=== PATIENT | female | born 1950 | race Caucasian/White ===

== ENCOUNTER 2020-04-03 16:23 | Inpatient (IN) ==
[2020-04-04] MEDS ORDERED: Ondansetron 4 MG/2 ML VIAL IVP PRN (07:49)
[2020-04-04] MEDS ORDERED: Naloxone 0.4 MG/ML INJ IVP PRN (07:49)
[2020-04-04] MEDS ORDERED: Acetaminophen 325 MG TABLET PO PRN (07:49)
[2020-04-04] MEDS ORDERED: MOM Conc 10 ML UD.LIQ PO PRN (07:49)
[2020-04-04] MEDS ORDERED: *HR* LORazepam 1 MG TABLET PO PRN (09:28)
[2020-04-04 10:08] LABS: Basophils % 0.3 %; Eosinophils # 0.3 K/mcL (0.0-0.6); Eosinophils % 3.4 %; Hemoglobin 11.2 g/dL (11.5-15.4); Immature Granulocytes % 0.3 % (0-4); Lymphocytes # 1.4 K/mcL (0.6-4.6); Lymphocytes % 17.6 %; Mean Corpuscular HGB Conc 30.3 g/dL (31.6-35.5); Mean Corpuscular Volume 92.5 fL (83.0-100.0); Monocytes # 0.7 K/mcL (0.0-1.3); Monocytes % 8.5 %; Neutrophils # 5.4 K/mcL (1.6-8.9); Platelet Count 293 K/mcL (140-400); Red Cell Distribution Width 17.2 % (11.5-14.5); Segmented Neutrophils % 69.9 %; White Blood Count 7.7 K/mcL (4.3-11.1)
[2020-04-04] MEDS: Pregabalin 50 MG CAPSULE PO SCH ×2 (10:20→21:26)
[2020-04-04] MEDS: Aspirin Enteric Coated 81 MG Tablet PO SCH (10:20)
[2020-04-04] MEDS: Loratadine 10 MG TABLET PO SCH (10:20)
[2020-04-04] MEDS: Artificial Tears SOLN 15 ML BOTTLE LEFT EYE SCH ×2 (10:21→21:27)
[2020-04-04 10:31] LABS: BUN/Creatinine Ratio 67 (6-26); Blood Urea Nitrogen 18 mg/dL (8-23); Calcium 9.1 mg/dL (8.6-10.3); Carbon Dioxide 36 mEq/L (23-29); Chloride 100 mEq/L (98-107); Glucose 69 mg/dL (70-105); Osmolality,Calculated 296 (280-300); Potassium 3.2 mEq/L (3.5-5.1); Sodium 143 mEq/L (136-145); eGFR For African Americans > 60 (> 60); eGFR For Non-African Americans > 60 (> 60)
[2020-04-04] MEDS: Ipratropium 1 PUFF INHALER IH SCH ×4 (11:19→23:43)
[2020-04-04] MEDS: Budesonide/Formoterol 160/4.5 1 PUFF INH IH SCH ×2 (11:19→21:03)
[2020-04-04] MEDS: Insulin LISPRO 300 UNITS/3 ML VIAL SUBQ SCH ×3 (14:16→20:31)
[2020-04-04] MEDS: PrednisoLONE Acetate 1% Opth 5 ML BOTTLE RIGHT EYE SCH (21:27)
[2020-04-04] MEDS: Latanoprost 2.5 ML BOTTLE RIGHT EYE SCH (21:27)
[2020-04-04] MEDS ORDERED: D5% in 0.45% NACL w KCl 20 MEQ/1,000 ML MLS IVC SCH (22:15)
[2020-04-05] MEDS: *HR* Enoxaparin 40 MG/0.4 ML SYRINGE SQ SCH (05:18)
[2020-04-05 07:24] LABS: Basophils % 0.3 %; Eosinophils # 0.3 K/mcL (0.0-0.6); Eosinophils % 5.3 %; Hematocrit 34.3 % (35.3-44.9); Hemoglobin 10.4 g/dL (11.5-15.4); Immature Granulocytes % 0.3 % (0-4); Lymphocytes # 0.9 K/mcL (0.6-4.6); Lymphocytes % 14.7 %; Mean Corpuscular HGB Conc 30.3 g/dL (31.6-35.5); Mean Corpuscular Hemoglobin 28.2 pg (28.0-33.3); Mean Platelet Volume 10.2 fL (9.4-12.4); Monocytes # 0.3 K/mcL (0.0-1.3); Monocytes % 5.5 %; Neutrophils # 4.3 K/mcL (1.6-8.9); Platelet Count 244 K/mcL (140-400); Red Blood Count 3.69 M/mcL (3.82-4.97); Red Cell Distribution Width 17.3 % (11.5-14.5); Segmented Neutrophils % 73.9 %; White Blood Count 5.9 K/mcL (4.3-11.1)
[2020-04-05] MEDS ORDERED: Ipratropium 1 PUFF INHALER IH SCH (07:30)
[2020-04-05 07:48] LABS: Alanine Aminotransferase 32 Units/L (7-52); Albumin 2.9 g/dL (3.5-5.7); Albumin/Globulin Ratio 1.3 (1.1-2.2); Alkaline Phosphatase 57 Units/L (34-104); Aspartate Amino Transferase 19 Units/L (13-39); BUN/Creatinine Ratio 55 (6-26); Bilirubin,Total 0.8 mg/dL (0.3-1.0); Blood Urea Nitrogen 18 mg/dL (8-23); Calcium 8.6 mg/dL (8.6-10.3); Carbon Dioxide 37 mEq/L (23-29); Chloride 100 mEq/L (98-107); Globulin 2.3 g/dL (2.4-3.5); Glucose 124 mg/dL (70-105); Magnesium 1.8 mg/dL (1.6-2.6); Osmolality,Calculated 293 (280-300); Potassium 3.6 mEq/L (3.5-5.1); Sodium 140 mEq/L (136-145); Total Protein 5.2 g/dL (6.4-8.9); eGFR For African Americans > 60 (> 60); eGFR For Non-African Americans > 60 (> 60)
[2020-04-05] MEDS: Ipratropium 1 PUFF INHALER IH SCH ×3 (08:11→22:35)
[2020-04-05] MEDS: Budesonide/Formoterol 160/4.5 1 PUFF INH IH SCH ×2 (09:58→22:36)
[2020-04-05] MEDS: Insulin LISPRO 300 UNITS/3 ML VIAL SUBQ SCH ×4 (11:02→20:32)
[2020-04-05] MEDS: Aspirin Enteric Coated 81 MG Tablet PO SCH (11:34)
[2020-04-05] MEDS: Loratadine 10 MG TABLET PO SCH (11:34)
[2020-04-05] MEDS: Pregabalin 50 MG CAPSULE PO SCH ×2 (11:34→20:25)
[2020-04-05] MEDS: Artificial Tears SOLN 15 ML BOTTLE LEFT EYE SCH ×2 (11:37→20:26)
[2020-04-05] MEDS: PrednisoLONE Acetate 1% Opth 5 ML BOTTLE RIGHT EYE SCH ×2 (11:39→20:28)
[2020-04-05] MEDS: acetaZOLAMIDE 250 MG TABLET PO SCH ×2 (15:03→20:25)
[2020-04-05] MEDS: Latanoprost 2.5 ML BOTTLE RIGHT EYE SCH (20:28)
[2020-04-06] MEDS: Ipratropium 1 PUFF INHALER IH SCH ×4 (04:19→23:03)
[2020-04-06 05:21] LABS: Basophils % 0.4 %; Eosinophils # 0.3 K/mcL (0.0-0.6); Eosinophils % 5.5 %; Hematocrit 34.3 % (35.3-44.9); Hemoglobin 10.4 g/dL (11.5-15.4); Immature Granulocytes % 0.4 % (0-4); Lymphocytes # 0.9 K/mcL (0.6-4.6); Lymphocytes % 16.9 %; Mean Corpuscular HGB Conc 30.3 g/dL (31.6-35.5); Mean Corpuscular Hemoglobin 28.4 pg (28.0-33.3); Mean Corpuscular Volume 93.7 fL (83.0-100.0); Mean Platelet Volume 10.6 fL (9.4-12.4); Monocytes # 0.4 K/mcL (0.0-1.3); Neutrophils # 3.7 K/mcL (1.6-8.9); Platelet Count 261 K/mcL (140-400); Red Blood Count 3.66 M/mcL (3.82-4.97); Red Cell Distribution Width 17.3 % (11.5-14.5); Segmented Neutrophils % 69.8 %; White Blood Count 5.3 K/mcL (4.3-11.1)
[2020-04-06] MEDS: *HR* Enoxaparin 40 MG/0.4 ML SYRINGE SQ SCH (05:51)
[2020-04-06 06:53] LABS: BUN/Creatinine Ratio 26 (6-26); Blood Urea Nitrogen 10 mg/dL (8-23); Calcium 8.7 mg/dL (8.6-10.3); Carbon Dioxide 31 mEq/L (23-29); Chloride 104 mEq/L (98-107); Glucose 96 mg/dL (70-105); Osmolality,Calculated 291 (280-300); Potassium 3.4 mEq/L (3.5-5.1); Sodium 141 mEq/L (136-145); eGFR For African Americans > 60 (> 60); eGFR For Non-African Americans > 60 (> 60)
[2020-04-06] MEDS: Budesonide/Formoterol 160/4.5 1 PUFF INH IH SCH ×2 (09:30→23:01)
[2020-04-06] MEDS: acetaZOLAMIDE 250 MG TABLET PO SCH ×2 (09:34→20:50)
[2020-04-06] MEDS: Aspirin Enteric Coated 81 MG Tablet PO SCH (09:34)
[2020-04-06] MEDS: Pregabalin 50 MG CAPSULE PO SCH ×2 (09:34→20:50)
[2020-04-06] MEDS: Loratadine 10 MG TABLET PO SCH (09:34)
[2020-04-06] MEDS: Artificial Tears SOLN 15 ML BOTTLE LEFT EYE SCH ×2 (09:36→20:50)
[2020-04-06] MEDS: PrednisoLONE Acetate 1% Opth 5 ML BOTTLE RIGHT EYE SCH ×2 (09:37→20:49)
[2020-04-06] MEDS: Insulin LISPRO 300 UNITS/3 ML VIAL SUBQ SCH ×4 (09:42→20:45)
[2020-04-06] MEDS: Metoprolol XL (24 HR) Succ 25 MG TAB.ER.24H PO SCH (12:22)
[2020-04-06] MEDS: Latanoprost 2.5 ML BOTTLE RIGHT EYE SCH (20:50)
[2020-04-07] MEDS: Ipratropium 1 PUFF INHALER IH SCH ×2 (04:47→11:10)
[2020-04-07] MEDS: *HR* Enoxaparin 40 MG/0.4 ML SYRINGE SQ SCH (05:16)
[2020-04-07 07:29] LABS: Basophils % 0.4 %; Eosinophils # 0.4 K/mcL (0.0-0.6); Eosinophils % 6.5 %; Hematocrit 34.3 % (35.3-44.9); Hemoglobin 10.3 g/dL (11.5-15.4); Immature Granulocytes % 0.4 % (0-4); Lymphocytes # 0.9 K/mcL (0.6-4.6); Lymphocytes % 15.8 %; Mean Corpuscular Hemoglobin 27.9 pg (28.0-33.3); Mean Platelet Volume 10.4 fL (9.4-12.4); Monocytes # 0.4 K/mcL (0.0-1.3); Monocytes % 7.8 %; Neutrophils # 3.7 K/mcL (1.6-8.9); Platelet Count 246 K/mcL (140-400); Red Blood Count 3.69 M/mcL (3.82-4.97); Red Cell Distribution Width 17.3 % (11.5-14.5); Segmented Neutrophils % 69.1 %; White Blood Count 5.4 K/mcL (4.3-11.1)
[2020-04-07] MEDS: Insulin LISPRO 300 UNITS/3 ML VIAL SUBQ SCH ×2 (07:36→11:48)
[2020-04-07 07:51] LABS: BUN/Creatinine Ratio 23 (6-26); Blood Urea Nitrogen 8 mg/dL (8-23); Calcium 8.9 mg/dL (8.6-10.3); Carbon Dioxide 28 mEq/L (23-29); Chloride 104 mEq/L (98-107); Glucose 123 mg/dL (70-105); Osmolality,Calculated 286 (280-300); Potassium 3.6 mEq/L (3.5-5.1); Sodium 138 mEq/L (136-145); eGFR For African Americans > 60 (> 60); eGFR For Non-African Americans > 60 (> 60)
[2020-04-07] MEDS ORDERED: *HR* GlipiZIDE XL (24 HR) 2.5 MG TABLET PO SCH (08:00)
[2020-04-07] MEDS: Aspirin Enteric Coated 81 MG Tablet PO SCH (08:03)
[2020-04-07] MEDS: Loratadine 10 MG TABLET PO SCH (08:03)
[2020-04-07] MEDS: Metoprolol XL (24 HR) Succ 25 MG TAB.ER.24H PO SCH (08:03)
[2020-04-07] MEDS: Pregabalin 50 MG CAPSULE PO SCH (08:04)
[2020-04-07] MEDS: PrednisoLONE Acetate 1% Opth 5 ML BOTTLE RIGHT EYE SCH (08:08)
[2020-04-07] MEDS: Artificial Tears SOLN 15 ML BOTTLE LEFT EYE SCH (08:09)
[2020-04-07] MEDS ORDERED: Furosemide 40 MG TABLET PO SCH (09:00)
[2020-04-07] MEDS: Budesonide/Formoterol 160/4.5 1 PUFF INH IH SCH (11:11)
[2020-04-07 11:33] VITALS: BP 113/58
== END 2020-04-07 12:15 | disposition other institution (70) | DRG 177 ==
LOC: INPPIK 04-04 06:37
PROVIDERS: ADMIT Family Medicine; ATTEND Family Medicine

== ENCOUNTER 2020-04-07 11:47 | Inpatient (IN) ==
[2020-04-07] MEDS ORDERED: Nitroglycerin 0.4 MG TAB.SUBL SL PRN (15:12)
[2020-04-07] MEDS ORDERED: *HR* LORazepam 1 MG TABLET PO PRN (15:12)
[2020-04-07] MEDS ORDERED: Ondansetron 4 MG/2 ML VIAL IVP PRN (15:12)
[2020-04-07] MEDS ORDERED: D5% in Water 1,000 ML IVC PRN (15:18)
[2020-04-07] MEDS ORDERED: Dextrose Gel 15 GM/37.5 ML TUBE PO PRN ×2 (15:18)
[2020-04-07] MEDS ORDERED: *HR* Dextrose 50 % in Water (Vial) 50 ML VIAL IVP PRN (15:18)
[2020-04-07] MEDS: Insulin LISPRO 300 UNITS/3 ML VIAL SUBQ SCH ×2 (16:36→21:40)
[2020-04-07] MEDS: Ipratropium 1 PUFF INHALER IH SCH ×2 (17:03→22:15)
[2020-04-07] MEDS: PrednisoLONE Acetate 1% Opth 5 ML BOTTLE RIGHT EYE SCH (21:46)
[2020-04-07] MEDS: Latanoprost 2.5 ML BOTTLE RIGHT EYE SCH (21:46)
[2020-04-07] MEDS: Pregabalin 50 MG CAPSULE PO SCH (21:46)
[2020-04-07] MEDS: Artificial Tears SOLN 15 ML BOTTLE LEFT EYE SCH (21:47)
[2020-04-07] MEDS: Budesonide/Formoterol 160/4.5 1 PUFF INH IH SCH (22:17)
[2020-04-08] MEDS: Ipratropium 1 PUFF INHALER IH SCH ×4 (03:53→22:21)
[2020-04-08] MEDS: *HR* Enoxaparin 40 MG/0.4 ML SYRINGE SQ SCH (05:36)
[2020-04-08 07:16] LABS: Basophils % 0.4 %; Eosinophils # 0.4 K/mcL (0.0-0.6); Eosinophils % 6.8 %; Hematocrit 36.7 % (35.3-44.9); Hemoglobin 11.1 g/dL (11.5-15.4); Immature Granulocytes % 0.4 % (0-4); Lymphocytes # 0.9 K/mcL (0.6-4.6); Lymphocytes % 16.5 %; Mean Corpuscular HGB Conc 30.2 g/dL (31.6-35.5); Mean Corpuscular Volume 92.7 fL (83.0-100.0); Mean Platelet Volume 10.4 fL (9.4-12.4); Monocytes # 0.5 K/mcL (0.0-1.3); Monocytes % 8.6 %; Neutrophils # 3.7 K/mcL (1.6-8.9); Platelet Count 302 K/mcL (140-400); Red Blood Count 3.96 M/mcL (3.82-4.97); Red Cell Distribution Width 17.2 % (11.5-14.5); Segmented Neutrophils % 67.3 %; White Blood Count 5.6 K/mcL (4.3-11.1)
[2020-04-08 07:20] LABS: BUN/Creatinine Ratio 22 (6-26); Blood Urea Nitrogen 8 mg/dL (8-23); Carbon Dioxide 31 mEq/L (23-29); Chloride 102 mEq/L (98-107); Glucose 104 mg/dL (70-105); Osmolality,Calculated 289 (280-300); Potassium 3.6 mEq/L (3.5-5.1); Sodium 140 mEq/L (136-145); eGFR For African Americans > 60 (> 60); eGFR For Non-African Americans > 60 (> 60)
[2020-04-08 07:22] LABS: Activated Partial Thrombo Time 33.6 Seconds (26.0-36.0); INR 1.1
[2020-04-08] MEDS: Insulin LISPRO 300 UNITS/3 ML VIAL SUBQ SCH ×4 (08:53→20:48)
[2020-04-08] MEDS: Pregabalin 50 MG CAPSULE PO SCH ×2 (08:54→20:47)
[2020-04-08] MEDS: *HR* GlipiZIDE XL (24 HR) 10 MG TABLET PO SCH (08:54)
[2020-04-08] MEDS: Furosemide 40 MG TABLET PO SCH (08:54)
[2020-04-08] MEDS: Metoprolol XL (24 HR) Succ 25 MG TAB.ER.24H PO SCH (08:54)
[2020-04-08] MEDS: Aspirin Enteric Coated 81 MG Tablet PO SCH (08:54)
[2020-04-08] MEDS: Losartan/HCTZ 50-12.5 TABLET PO SCH (08:54)
[2020-04-08] MEDS: PrednisoLONE Acetate 1% Opth 5 ML BOTTLE RIGHT EYE SCH ×2 (08:55→20:48)
[2020-04-08] MEDS: Loratadine 10 MG TABLET PO SCH (08:55)
[2020-04-08] MEDS: Artificial Tears SOLN 15 ML BOTTLE LEFT EYE SCH ×2 (09:01→20:45)
[2020-04-08] MEDS: Budesonide/Formoterol 160/4.5 1 PUFF INH IH SCH ×2 (09:38→22:25)
[2020-04-08] MEDS: Latanoprost 2.5 ML BOTTLE RIGHT EYE SCH (20:50)
[2020-04-09] MEDS: Ipratropium 1 PUFF INHALER IH SCH ×4 (03:42→22:24)
[2020-04-09] MEDS: *HR* Enoxaparin 40 MG/0.4 ML SYRINGE SQ SCH (05:20)
[2020-04-09] MEDS: PrednisoLONE Acetate 1% Opth 5 ML BOTTLE RIGHT EYE SCH ×2 (08:33→19:58)
[2020-04-09] MEDS: Insulin LISPRO 300 UNITS/3 ML VIAL SUBQ SCH ×4 (08:33→20:04)
[2020-04-09] MEDS: Aspirin Enteric Coated 81 MG Tablet PO SCH (08:34)
[2020-04-09] MEDS: Pregabalin 50 MG CAPSULE PO SCH ×2 (08:34→19:58)
[2020-04-09] MEDS: Metoprolol XL (24 HR) Succ 25 MG TAB.ER.24H PO SCH (08:34)
[2020-04-09] MEDS: Loratadine 10 MG TABLET PO SCH (08:34)
[2020-04-09] MEDS: Losartan/HCTZ 50-12.5 TABLET PO SCH (08:34)
[2020-04-09] MEDS: *HR* GlipiZIDE XL (24 HR) 10 MG TABLET PO SCH (08:35)
[2020-04-09] MEDS: Furosemide 40 MG TABLET PO SCH (08:35)
[2020-04-09] MEDS: Artificial Tears SOLN 15 ML BOTTLE LEFT EYE SCH ×2 (08:36→19:56)
[2020-04-09] MEDS: Budesonide/Formoterol 160/4.5 1 PUFF INH IH SCH ×2 (10:06→22:24)
[2020-04-09] MEDS: Latanoprost 2.5 ML BOTTLE RIGHT EYE SCH (19:58)
[2020-04-10] MEDS: Ipratropium 1 PUFF INHALER IH SCH ×4 (04:28→22:58)
[2020-04-10] MEDS: *HR* Enoxaparin 40 MG/0.4 ML SYRINGE SQ SCH (05:13)
[2020-04-10] MEDS: Insulin LISPRO 300 UNITS/3 ML VIAL SUBQ SCH ×4 (07:32→19:55)
[2020-04-10] MEDS: Artificial Tears SOLN 15 ML BOTTLE LEFT EYE SCH ×2 (08:29→20:05)
[2020-04-10] MEDS: PrednisoLONE Acetate 1% Opth 5 ML BOTTLE RIGHT EYE SCH ×2 (08:30→20:04)
[2020-04-10] MEDS: *HR* GlipiZIDE XL (24 HR) 10 MG TABLET PO SCH (08:31)
[2020-04-10] MEDS: Metoprolol XL (24 HR) Succ 25 MG TAB.ER.24H PO SCH (08:31)
[2020-04-10] MEDS: Losartan/HCTZ 50-12.5 TABLET PO SCH (08:32)
[2020-04-10] MEDS: Furosemide 40 MG TABLET PO SCH (08:32)
[2020-04-10] MEDS: Aspirin Enteric Coated 81 MG Tablet PO SCH (08:32)
[2020-04-10] MEDS: Loratadine 10 MG TABLET PO SCH (08:32)
[2020-04-10] MEDS: Pregabalin 50 MG CAPSULE PO SCH ×2 (08:32→20:05)
[2020-04-10] MEDS: Budesonide/Formoterol 160/4.5 1 PUFF INH IH SCH ×2 (09:13→22:58)
[2020-04-10] MEDS: Latanoprost 2.5 ML BOTTLE RIGHT EYE SCH (20:05)
[2020-04-11] MEDS: Ipratropium 1 PUFF INHALER IH SCH ×4 (04:37→21:27)
[2020-04-11] MEDS: *HR* Enoxaparin 40 MG/0.4 ML SYRINGE SQ SCH (05:16)
[2020-04-11] MEDS: Insulin LISPRO 300 UNITS/3 ML VIAL SUBQ SCH ×4 (08:44→21:11)
[2020-04-11] MEDS: Losartan/HCTZ 50-12.5 TABLET PO SCH (08:45)
[2020-04-11] MEDS: Loratadine 10 MG TABLET PO SCH (08:45)
[2020-04-11] MEDS: Furosemide 40 MG TABLET PO SCH (08:45)
[2020-04-11] MEDS: Aspirin Enteric Coated 81 MG Tablet PO SCH (08:45)
[2020-04-11] MEDS: *HR* GlipiZIDE XL (24 HR) 10 MG TABLET PO SCH (08:45)
[2020-04-11] MEDS: Pregabalin 50 MG CAPSULE PO SCH ×2 (08:45→21:09)
[2020-04-11] MEDS: PrednisoLONE Acetate 1% Opth 5 ML BOTTLE RIGHT EYE SCH ×2 (08:58→21:16)
[2020-04-11] MEDS: Metoprolol XL (24 HR) Succ 25 MG TAB.ER.24H PO SCH (08:59)
[2020-04-11] MEDS: Artificial Tears SOLN 15 ML BOTTLE LEFT EYE SCH ×2 (08:59→21:16)
[2020-04-11] MEDS: Budesonide/Formoterol 160/4.5 1 PUFF INH IH SCH ×2 (09:20→21:27)
[2020-04-11] MEDS: Latanoprost 2.5 ML BOTTLE RIGHT EYE SCH (21:06)
[2020-04-12] MEDS: Ipratropium 1 PUFF INHALER IH SCH ×4 (04:27→20:53)
[2020-04-12] MEDS: *HR* Enoxaparin 40 MG/0.4 ML SYRINGE SQ SCH (04:57)
[2020-04-12] MEDS: Insulin LISPRO 300 UNITS/3 ML VIAL SUBQ SCH ×4 (07:42→21:18)
[2020-04-12] MEDS: Artificial Tears SOLN 15 ML BOTTLE LEFT EYE SCH ×2 (07:47→21:18)
[2020-04-12] MEDS: Pregabalin 50 MG CAPSULE PO SCH ×2 (07:49→21:20)
[2020-04-12] MEDS: Aspirin Enteric Coated 81 MG Tablet PO SCH (07:52)
[2020-04-12] MEDS: *HR* GlipiZIDE XL (24 HR) 10 MG TABLET PO SCH (07:52)
[2020-04-12] MEDS: Furosemide 40 MG TABLET PO SCH (07:52)
[2020-04-12] MEDS: Loratadine 10 MG TABLET PO SCH (07:52)
[2020-04-12] MEDS: PrednisoLONE Acetate 1% Opth 5 ML BOTTLE RIGHT EYE SCH ×2 (07:53→21:21)
[2020-04-12] MEDS ORDERED: Metoprolol XL (24 HR) Succ 25 MG TAB.ER.24H PO SCH (09:00)
[2020-04-12] MEDS: Budesonide/Formoterol 160/4.5 1 PUFF INH IH SCH ×2 (09:50→20:52)
[2020-04-12] MEDS: Latanoprost 2.5 ML BOTTLE RIGHT EYE SCH (21:21)
[2020-04-13] MEDS: Ipratropium 1 PUFF INHALER IH SCH ×4 (03:48→22:45)
[2020-04-13] MEDS: Insulin LISPRO 300 UNITS/3 ML VIAL SUBQ SCH ×4 (08:12→21:17)
[2020-04-13] MEDS: Artificial Tears SOLN 15 ML BOTTLE LEFT EYE SCH ×2 (08:13→21:16)
[2020-04-13] MEDS: Pregabalin 50 MG CAPSULE PO SCH ×2 (08:15→21:18)
[2020-04-13] MEDS: Loratadine 10 MG TABLET PO SCH (08:15)
[2020-04-13] MEDS: *HR* GlipiZIDE XL (24 HR) 10 MG TABLET PO SCH (08:16)
[2020-04-13] MEDS: Aspirin Enteric Coated 81 MG Tablet PO SCH (08:16)
[2020-04-13] MEDS: Furosemide 40 MG TABLET PO SCH (08:16)
[2020-04-13] MEDS: PrednisoLONE Acetate 1% Opth 5 ML BOTTLE RIGHT EYE SCH ×2 (08:18→21:16)
[2020-04-13] MEDS: Budesonide/Formoterol 160/4.5 1 PUFF INH IH SCH ×2 (10:23→22:46)
[2020-04-13] MEDS: Preparation H Ointment 57 GM TUBE RC SCH ×2 (12:41→21:19)
[2020-04-13] MEDS: Latanoprost 2.5 ML BOTTLE RIGHT EYE SCH (21:16)
[2020-04-14] MEDS: Ipratropium 1 PUFF INHALER IH SCH ×2 (03:35→09:44)
[2020-04-14] MEDS: Pregabalin 50 MG CAPSULE PO SCH ×2 (08:24→21:13)
[2020-04-14] MEDS: *HR* GlipiZIDE XL (24 HR) 10 MG TABLET PO SCH (08:24)
[2020-04-14] MEDS: Furosemide 40 MG TABLET PO SCH (08:24)
[2020-04-14] MEDS: Loratadine 10 MG TABLET PO SCH (08:24)
[2020-04-14] MEDS: Insulin LISPRO 300 UNITS/3 ML VIAL SUBQ SCH ×4 (08:24→21:14)
[2020-04-14] MEDS: Aspirin Enteric Coated 81 MG Tablet PO SCH (08:25)
[2020-04-14] MEDS: Artificial Tears SOLN 15 ML BOTTLE LEFT EYE SCH ×2 (08:30→21:15)
[2020-04-14] MEDS: PrednisoLONE Acetate 1% Opth 5 ML BOTTLE RIGHT EYE SCH ×2 (08:34→21:16)
[2020-04-14] MEDS: Preparation H Ointment 57 GM TUBE RC SCH ×2 (08:39→21:17)
[2020-04-14] MEDS: Budesonide/Formoterol 160/4.5 1 PUFF INH IH SCH ×2 (09:44→22:14)
[2020-04-14] MEDS: Latanoprost 2.5 ML BOTTLE RIGHT EYE SCH (21:16)
[2020-04-14] MEDS: Ipratropium 1 PUFF INHALER IH PRN (22:16)
[2020-04-15] MEDS: Ipratropium 1 PUFF INHALER IH PRN ×3 (08:35→21:08)
[2020-04-15] MEDS: Budesonide/Formoterol 160/4.5 1 PUFF INH IH SCH ×2 (08:35→21:08)
[2020-04-15] MEDS: Artificial Tears SOLN 15 ML BOTTLE LEFT EYE SCH ×2 (08:48→19:58)
[2020-04-15] MEDS: Aspirin Enteric Coated 81 MG Tablet PO SCH (08:49)
[2020-04-15] MEDS: Pregabalin 50 MG CAPSULE PO SCH ×2 (08:49→19:58)
[2020-04-15] MEDS: *HR* GlipiZIDE XL (24 HR) 10 MG TABLET PO SCH (08:49)
[2020-04-15] MEDS: Loratadine 10 MG TABLET PO SCH (08:49)
[2020-04-15] MEDS: Furosemide 40 MG TABLET PO SCH (08:49)
[2020-04-15] MEDS: Preparation H Ointment 57 GM TUBE RC SCH ×2 (08:50→20:00)
[2020-04-15] MEDS: PrednisoLONE Acetate 1% Opth 5 ML BOTTLE RIGHT EYE SCH ×2 (08:53→20:00)
[2020-04-15] MEDS: Insulin LISPRO 300 UNITS/3 ML VIAL SUBQ SCH ×4 (08:54→20:09)
[2020-04-15] MEDS: Diphenoxylate/Atropine 1 TAB TABLET PO PRN ×2 (16:48→19:58)
[2020-04-15] MEDS: Potassium Chloride Elixir 20 MEQ/15 ML UDC PO SCH ×2 (19:58→20:06)
[2020-04-15] MEDS: Latanoprost 2.5 ML BOTTLE RIGHT EYE SCH (19:59)
[2020-04-16 07:13] LABS: Basophils % 0.5 %; Eosinophils # 0.2 K/mcL (0.0-0.6); Eosinophils % 2.3 %; Hematocrit 33.4 % (35.3-44.9); Hemoglobin 10.2 g/dL (11.5-15.4); Immature Granulocytes % 0.4 % (0-4); Lymphocytes # 1.5 K/mcL (0.6-4.6); Lymphocytes % 20.3 %; Mean Corpuscular HGB Conc 30.5 g/dL (31.6-35.5); Mean Corpuscular Hemoglobin 27.6 pg (28.0-33.3); Mean Corpuscular Volume 90.3 fL (83.0-100.0); Monocytes # 0.6 K/mcL (0.0-1.3); Monocytes % 8.1 %; Platelet Count 247 K/mcL (140-400); Red Cell Distribution Width 16.5 % (11.5-14.5); Segmented Neutrophils % 68.4 %; White Blood Count 7.3 K/mcL (4.3-11.1)
[2020-04-16 07:23] LABS: BUN/Creatinine Ratio 34 (6-26); Blood Urea Nitrogen 12 mg/dL (8-23); Calcium 8.9 mg/dL (8.6-10.3); Carbon Dioxide 38 mEq/L (23-29); Chloride 96 mEq/L (98-107); Glucose 117 mg/dL (70-105); Osmolality,Calculated 291 (280-300); Potassium 3.6 mEq/L (3.5-5.1); Sodium 140 mEq/L (136-145); eGFR For African Americans > 60 (> 60); eGFR For Non-African Americans > 60 (> 60)
[2020-04-16] MEDS: Budesonide/Formoterol 160/4.5 1 PUFF INH IH SCH ×2 (08:53→21:24)
[2020-04-16] MEDS: Ipratropium 1 PUFF INHALER IH PRN ×3 (08:54→21:24)
[2020-04-16] MEDS: Insulin LISPRO 300 UNITS/3 ML VIAL SUBQ SCH ×4 (08:57→20:25)
[2020-04-16] MEDS: Loratadine 10 MG TABLET PO SCH (08:57)
[2020-04-16] MEDS: Furosemide 40 MG TABLET PO SCH (08:57)
[2020-04-16] MEDS: Aspirin Enteric Coated 81 MG Tablet PO SCH (08:57)
[2020-04-16] MEDS: Pregabalin 50 MG CAPSULE PO SCH ×2 (08:58→20:24)
[2020-04-16] MEDS: *HR* GlipiZIDE XL (24 HR) 10 MG TABLET PO SCH (08:58)
[2020-04-16] MEDS: PrednisoLONE Acetate 1% Opth 5 ML BOTTLE RIGHT EYE SCH ×2 (09:02→20:25)
[2020-04-16] MEDS: Artificial Tears SOLN 15 ML BOTTLE LEFT EYE SCH ×2 (09:02→20:24)
[2020-04-16] MEDS: Preparation H Ointment 57 GM TUBE RC SCH ×2 (12:11→20:25)
[2020-04-16] MEDS: Latanoprost 2.5 ML BOTTLE RIGHT EYE SCH (20:25)
[2020-04-17] MEDS: Insulin LISPRO 300 UNITS/3 ML VIAL SUBQ SCH ×4 (07:48→20:01)
[2020-04-17] MEDS: *HR* GlipiZIDE XL (24 HR) 10 MG TABLET PO SCH (08:16)
[2020-04-17] MEDS: Loratadine 10 MG TABLET PO SCH (08:16)
[2020-04-17] MEDS: Pregabalin 50 MG CAPSULE PO SCH ×2 (08:16→20:00)
[2020-04-17] MEDS: Aspirin Enteric Coated 81 MG Tablet PO SCH (08:16)
[2020-04-17] MEDS: Furosemide 40 MG TABLET PO SCH (08:16)
[2020-04-17] MEDS: Preparation H Ointment 57 GM TUBE RC SCH ×2 (08:17→21:06)
[2020-04-17] MEDS: Artificial Tears SOLN 15 ML BOTTLE LEFT EYE SCH ×2 (08:17→20:01)
[2020-04-17] MEDS: PrednisoLONE Acetate 1% Opth 5 ML BOTTLE RIGHT EYE SCH ×2 (08:21→20:01)
[2020-04-17] MEDS: Ipratropium 1 PUFF INHALER IH PRN ×2 (10:39→21:06)
[2020-04-17] MEDS: Budesonide/Formoterol 160/4.5 1 PUFF INH IH SCH ×2 (10:40→21:06)
[2020-04-17] MEDS: Latanoprost 2.5 ML BOTTLE RIGHT EYE SCH (20:00)
[2020-04-18] MEDS: Preparation H Ointment 57 GM TUBE RC SCH ×2 (06:03→20:29)
[2020-04-18] MEDS: Artificial Tears SOLN 15 ML BOTTLE LEFT EYE SCH ×2 (08:29→20:20)
[2020-04-18] MEDS: Aspirin Enteric Coated 81 MG Tablet PO SCH (08:30)
[2020-04-18] MEDS: *HR* GlipiZIDE XL (24 HR) 10 MG TABLET PO SCH (08:30)
[2020-04-18] MEDS: Furosemide 40 MG TABLET PO SCH (08:30)
[2020-04-18] MEDS: Loratadine 10 MG TABLET PO SCH (08:30)
[2020-04-18] MEDS: Pregabalin 50 MG CAPSULE PO SCH ×2 (08:31→20:19)
[2020-04-18] MEDS: Insulin LISPRO 300 UNITS/3 ML VIAL SUBQ SCH ×4 (08:31→20:20)
[2020-04-18] MEDS: PrednisoLONE Acetate 1% Opth 5 ML BOTTLE RIGHT EYE SCH ×2 (08:33→20:19)
[2020-04-18] MEDS: Budesonide/Formoterol 160/4.5 1 PUFF INH IH SCH ×2 (10:18→20:52)
[2020-04-18] MEDS: Ipratropium 1 PUFF INHALER IH PRN ×2 (10:20→20:53)
[2020-04-18] MEDS: Acetaminophen 325 MG TABLET PO PRN (20:19)
[2020-04-18] MEDS: Latanoprost 2.5 ML BOTTLE RIGHT EYE SCH (20:20)
[2020-04-19] MEDS: Insulin LISPRO 300 UNITS/3 ML VIAL SUBQ SCH ×4 (08:06→21:12)
[2020-04-19] MEDS: Loratadine 10 MG TABLET PO SCH (08:30)
[2020-04-19] MEDS: Furosemide 40 MG TABLET PO SCH (08:30)
[2020-04-19] MEDS: *HR* GlipiZIDE XL (24 HR) 10 MG TABLET PO SCH (08:30)
[2020-04-19] MEDS: Aspirin Enteric Coated 81 MG Tablet PO SCH (08:30)
[2020-04-19] MEDS: Pregabalin 50 MG CAPSULE PO SCH ×2 (08:30→21:16)
[2020-04-19] MEDS: Artificial Tears SOLN 15 ML BOTTLE LEFT EYE SCH ×2 (08:31→21:21)
[2020-04-19] MEDS: PrednisoLONE Acetate 1% Opth 5 ML BOTTLE RIGHT EYE SCH ×2 (08:32→21:21)
[2020-04-19] MEDS: Budesonide/Formoterol 160/4.5 1 PUFF INH IH SCH ×2 (08:55→21:29)
[2020-04-19] MEDS: Ipratropium 1 PUFF INHALER IH PRN ×2 (08:56→21:29)
[2020-04-19] MEDS: Preparation H Ointment 57 GM TUBE RC SCH ×2 (13:51→21:17)
[2020-04-19] MEDS: Acetaminophen 325 MG TABLET PO PRN (21:15)
[2020-04-19] MEDS: Latanoprost 2.5 ML BOTTLE RIGHT EYE SCH (21:20)
[2020-04-20] MEDS: PrednisoLONE Acetate 1% Opth 5 ML BOTTLE RIGHT EYE SCH ×2 (08:06→21:47)
[2020-04-20] MEDS: Artificial Tears SOLN 15 ML BOTTLE LEFT EYE SCH ×2 (08:06→21:48)
[2020-04-20] MEDS: Acetaminophen 325 MG TABLET PO PRN ×2 (08:11→21:49)
[2020-04-20] MEDS: Pregabalin 50 MG CAPSULE PO SCH ×2 (08:12→21:50)
[2020-04-20] MEDS: *HR* GlipiZIDE XL (24 HR) 10 MG TABLET PO SCH (08:12)
[2020-04-20] MEDS: Aspirin Enteric Coated 81 MG Tablet PO SCH (08:12)
[2020-04-20] MEDS: Loratadine 10 MG TABLET PO SCH (08:12)
[2020-04-20] MEDS: Insulin LISPRO 300 UNITS/3 ML VIAL SUBQ SCH ×4 (08:13→21:39)
[2020-04-20] MEDS: Furosemide 40 MG TABLET PO SCH (08:16)
[2020-04-20] MEDS: Ipratropium 1 PUFF INHALER IH PRN ×2 (08:25→21:23)
[2020-04-20] MEDS: Budesonide/Formoterol 160/4.5 1 PUFF INH IH SCH ×2 (08:25→21:23)
[2020-04-20] MEDS: Preparation H Ointment 57 GM TUBE RC SCH ×2 (09:46→21:46)
[2020-04-20] MEDS: Latanoprost 2.5 ML BOTTLE RIGHT EYE SCH (21:51)
[2020-04-21] MEDS: Insulin LISPRO 300 UNITS/3 ML VIAL SUBQ SCH ×4 (07:40→21:49)
[2020-04-21] MEDS: Ipratropium 1 PUFF INHALER IH PRN ×2 (07:59→21:22)
[2020-04-21] MEDS: Budesonide/Formoterol 160/4.5 1 PUFF INH IH SCH ×2 (07:59→21:22)
[2020-04-21] MEDS: *HR* GlipiZIDE XL (24 HR) 10 MG TABLET PO SCH (10:04)
[2020-04-21] MEDS: Furosemide 40 MG TABLET PO SCH (10:04)
[2020-04-21] MEDS: Aspirin Enteric Coated 81 MG Tablet PO SCH (10:04)
[2020-04-21] MEDS: Loratadine 10 MG TABLET PO SCH (10:04)
[2020-04-21] MEDS: Pregabalin 50 MG CAPSULE PO SCH ×2 (10:05→22:57)
[2020-04-21] MEDS: Artificial Tears SOLN 15 ML BOTTLE LEFT EYE SCH ×2 (10:12→21:48)
[2020-04-21] MEDS: PrednisoLONE Acetate 1% Opth 5 ML BOTTLE RIGHT EYE SCH ×2 (10:13→21:48)
[2020-04-21] MEDS: Preparation H Ointment 57 GM TUBE RC SCH ×2 (10:15→21:50)
[2020-04-21] MEDS ORDERED: *HR* LORazepam 1 MG TABLET PO PRN (15:19)
[2020-04-21] MEDS: Acetaminophen 325 MG TABLET PO PRN (21:46)
[2020-04-21] MEDS: Latanoprost 2.5 ML BOTTLE RIGHT EYE SCH (21:50)
[2020-04-22] MEDS: Insulin LISPRO 300 UNITS/3 ML VIAL SUBQ SCH ×4 (07:46→20:43)
[2020-04-22] MEDS: Budesonide/Formoterol 160/4.5 1 PUFF INH IH SCH ×2 (10:14→21:04)
[2020-04-22] MEDS: Ipratropium 1 PUFF INHALER IH PRN ×2 (10:15→21:04)
[2020-04-22] MEDS: Furosemide 40 MG TABLET PO SCH (10:17)
[2020-04-22] MEDS: Pregabalin 50 MG CAPSULE PO SCH ×2 (10:17→20:41)
[2020-04-22] MEDS: *HR* GlipiZIDE XL (24 HR) 10 MG TABLET PO SCH (10:17)
[2020-04-22] MEDS: Acetaminophen 325 MG TABLET PO PRN ×2 (10:17→20:41)
[2020-04-22] MEDS: Loratadine 10 MG TABLET PO SCH (10:18)
[2020-04-22] MEDS: Aspirin Enteric Coated 81 MG Tablet PO SCH (10:18)
[2020-04-22] MEDS: Preparation H Ointment 57 GM TUBE RC SCH ×2 (10:19→20:48)
[2020-04-22] MEDS: PrednisoLONE Acetate 1% Opth 5 ML BOTTLE RIGHT EYE SCH ×2 (10:23→20:47)
[2020-04-22] MEDS: Artificial Tears SOLN 15 ML BOTTLE LEFT EYE SCH ×2 (10:23→20:47)
[2020-04-22] MEDS: Latanoprost 2.5 ML BOTTLE RIGHT EYE SCH (20:46)
[2020-04-23] MEDS: Insulin LISPRO 300 UNITS/3 ML VIAL SUBQ SCH ×4 (08:16→21:12)
[2020-04-23] MEDS: Pregabalin 50 MG CAPSULE PO SCH ×2 (08:21→21:11)
[2020-04-23] MEDS: Artificial Tears SOLN 15 ML BOTTLE LEFT EYE SCH ×2 (08:21→21:16)
[2020-04-23] MEDS: PrednisoLONE Acetate 1% Opth 5 ML BOTTLE RIGHT EYE SCH ×2 (08:21→21:15)
[2020-04-23] MEDS: *HR* GlipiZIDE XL (24 HR) 10 MG TABLET PO SCH (08:22)
[2020-04-23] MEDS: Aspirin Enteric Coated 81 MG Tablet PO SCH (08:22)
[2020-04-23] MEDS: Furosemide 40 MG TABLET PO SCH (08:22)
[2020-04-23] MEDS: Loratadine 10 MG TABLET PO SCH (08:22)
[2020-04-23] MEDS: Preparation H Ointment 57 GM TUBE RC SCH ×2 (09:36→21:16)
[2020-04-23] MEDS: Budesonide/Formoterol 160/4.5 1 PUFF INH IH SCH ×2 (10:39→22:18)
[2020-04-23] MEDS: Ipratropium 1 PUFF INHALER IH PRN ×2 (10:40→22:18)
[2020-04-23] MEDS: Acetaminophen 325 MG TABLET PO PRN ×2 (14:01→21:28)
[2020-04-23] MEDS ORDERED: Psyllium 1 PACKET POWD.PACK PO SCH (17:03)
[2020-04-23] MEDS: Psyllium 1 PACKET POWD.PACK PO SCH (21:11)
[2020-04-23] MEDS: Latanoprost 2.5 ML BOTTLE RIGHT EYE SCH (21:15)
[2020-04-24] MEDS: Insulin LISPRO 300 UNITS/3 ML VIAL SUBQ SCH ×5 (07:34→21:54)
[2020-04-24] MEDS: Artificial Tears SOLN 15 ML BOTTLE LEFT EYE SCH ×2 (07:44→21:52)
[2020-04-24] MEDS: PrednisoLONE Acetate 1% Opth 5 ML BOTTLE RIGHT EYE SCH ×2 (07:44→21:52)
[2020-04-24] MEDS: Psyllium 1 PACKET POWD.PACK PO SCH (07:45)
[2020-04-24] MEDS: Furosemide 40 MG TABLET PO SCH (07:45)
[2020-04-24] MEDS: *HR* GlipiZIDE XL (24 HR) 10 MG TABLET PO SCH (07:45)
[2020-04-24] MEDS: Loratadine 10 MG TABLET PO SCH (07:45)
[2020-04-24] MEDS: Pregabalin 50 MG CAPSULE PO SCH ×2 (07:45→21:54)
[2020-04-24] MEDS: Aspirin Enteric Coated 81 MG Tablet PO SCH (07:46)
[2020-04-24] MEDS: Budesonide/Formoterol 160/4.5 1 PUFF INH IH SCH ×2 (07:58→21:01)
[2020-04-24] MEDS: Ipratropium 1 PUFF INHALER IH PRN ×2 (07:58→21:01)
[2020-04-24] MEDS: Preparation H Ointment 57 GM TUBE RC SCH ×2 (12:55→21:55)
[2020-04-24] MEDS: Acetaminophen 325 MG TABLET PO PRN ×2 (13:00→21:53)
[2020-04-24] MEDS: Latanoprost 2.5 ML BOTTLE RIGHT EYE SCH (21:52)
[2020-04-25 06:45] VITALS: BP 99/67
[2020-04-25] MEDS: Insulin LISPRO 300 UNITS/3 ML VIAL SUBQ SCH (07:15)
[2020-04-25] MEDS: Aspirin Enteric Coated 81 MG Tablet PO SCH (07:41)
[2020-04-25] MEDS: Furosemide 40 MG TABLET PO SCH (07:42)
[2020-04-25] MEDS: Pregabalin 50 MG CAPSULE PO SCH (07:43)
[2020-04-25] MEDS: Loratadine 10 MG TABLET PO SCH (07:44)
[2020-04-25] MEDS: *HR* GlipiZIDE XL (24 HR) 10 MG TABLET PO SCH (07:45)
[2020-04-25] MEDS: Acetaminophen 325 MG TABLET PO PRN (07:45)
[2020-04-25] MEDS: Artificial Tears SOLN 15 ML BOTTLE LEFT EYE SCH (07:46)
[2020-04-25] MEDS: Psyllium 1 PACKET POWD.PACK PO SCH (07:46)
[2020-04-25] MEDS: PrednisoLONE Acetate 1% Opth 5 ML BOTTLE RIGHT EYE SCH (08:00)
[2020-04-25] MEDS: Preparation H Ointment 57 GM TUBE RC SCH (08:00)
[2020-04-25] MEDS: Ipratropium 1 PUFF INHALER IH PRN (08:06)
[2020-04-25] MEDS: Budesonide/Formoterol 160/4.5 1 PUFF INH IH SCH (08:06)
== END 2020-04-25 10:04 | disposition home health service (06) | DRG 945 ==
LOC: INPPIK 13:56
PROVIDERS: ADMIT Family Medicine; ATTEND Family Medicine